=== PATIENT | male | born 1990 | race Caucasian/White ===

== ENCOUNTER 2021-01-06 13:28 | Emergency (ER) | payer OTHER ==
[~2021-01-06] VITALS: Ht 170.2 cm; Wt 70.3 kg
[~2021-01-06 13:28] MED LIST: ACETAMINOPHEN-1 EAC1 PO; AMOXICILLIN 50500 M1 PO; MECLIZINE HCL12.5 MG PO; PREDNISONE 20 M20 M1 PO; PROVENTIL HFA6.7 G1 INH
[2021-01-06] MEDS ORDERED: NORCO5 PO (14:42)
[2021-01-06] MEDS ORDERED: IBUPROFEN 800800 M1 PO (14:42)
[2021-01-06 15:21] VITALS: BP 132/95
== END 2021-01-06 15:22 | disposition home or self-care (01) ==
LOC: M.ERS 13:28
DX: S52.502A Unspecified fracture of the lower end of left radius, initial encounter for closed fracture (principal); W10.8XXA Fall (on) (from) other stairs and steps, initial encounter; Y93.89 Activity, other specified; Y92.89 Other specified places as the place of occurrence of the external cause; Y99.8 Other external cause status